=== PATIENT | female | born 1960 | race Caucasian/White ===

== ENCOUNTER 2017-01-17 06:25 | Inpatient (IN) ==
--- NOTE | 2017-01-16 21:54 | Discharge Summary ---
<Gumaro England - Last Filed: 01/17/17 07:49> Date of Encounter: 01/17/17 - Discharge Diagnosis (1) HTN (hypertension) Priority: Secondary Status: Chronic Qualifiers: Hypertension type: unspecified Qualified Code(s): I10 - Essential (primary ) hypertension (2) Hyperlipidemia Priority: Secondary Status: Chronic Qualifiers: Hyperlipidemia type: pure hypercholesterolemia Qualified Code(s): E78.00 - Pure hypercholesterolemia, unspecified; E78.0 - Pure hypercholesterolemia (3) Loosening of total shoulder replacement Priority: Primary Status: Acute Qualifiers: Encounter type: subsequent encounter Qualified Code(s): T84.038D - Mechanical loosening of other internal prosthetic joint, subsequent encounter; Z96.619 - Presence of unspecified artificial shoulder joint; Z96.619 - Presence of unspecified artificial shoulder joint (4) 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 Qualifiers: Laterality: left Qualified Code(s): Z96.612 - Presence of left artificial shoulder joint - Discharge Medications Home Medications: Buspirone HCl [Buspar] 10 mg PO BID 12/01/15 [History] Dicyclomine 20 mg PO TID 12/01/15 [History] Gabapentin [Neurontin] 600 mg PO TID 12/01/15 [History] Losartan Potassium [Cozaar] 100 mg PO HS 12/01/15 [History] Metoprolol XL (24 HR) Succ [Toprol Xl] 50 mg PO DAILY 12/01/15 [History] Potassium Chloride [K-Tab ER] 10 meq PO BID 12/01/15 [History] Simvastatin [Zocor] 40 mg PO HS 12/01/15 [History] TraZODone 50 mg PO HS 12/01/15 [History] Venlafaxine XR (24 HR) [Effexor XR] 75 mg PO TID 12/01/15 [History] cloNIDine HCl [CloNIDine HCl] 0.1 mg PO BID 12/01/15 [History] hydroCHLOROthiazide [Hydrochlorothiazide] 25 mg PO DAILY 12/01/15 [History] OxyCODONE Immed Rel [Roxicodone 5 MG] 5 mg PO Q6HR PRN #28 tablet 01/16/17 [Rx] Cetirizine HCl [Zyrtec] 10 mg PO DAILY 01/17/17 [History] Lansoprazole [Prevacid] 30 mg PO DAILY 01/17/17 [History] Meloxicam [Mobic] 15 mg PO DAILY 01/17/17 [History] Allergies/Adverse Reactions: 3 Allergy/AdvReac Type Severity Reaction Status Date / Time No Known Allergies Allergy Verified 01/17/17 07:09 Primary care physician: He Metcalf, - Patient Status Disposition: Home, Self-Care Condition: Fair - Discharge Instructions Follow Up With: He Metcalf, [Primary Care Provider] - Additional Instructions: Discharge Instructions: Total Shoulder Please call [facility] ([phone]), your Primary Care Physician, or report to the Emergency Room if you have any of the following symptoms: Nausea, vomiting, fever greater that 101.5, swelling, chest pain, shortness of breath, increased pain/redness/drainage/odor for your incision site, numbness/ tingling, or any other concerning symptoms. ACTIVITY: Always keep your arm in the sling. Do not raise your arm away from your body. Do not use your arm to help with getting in or out of bed. No weight bearing permitted. Only perform those exercises given to you by your therapist. MEDICATIONS: Upon discharge resume your home medications. Take all the medications as prescribed. Take a stool softener if taking narcotic pain medications. Stool softeners are only effective if you drink enough fluids. Drink 6-8 glass of water or fluids a day, unless this is not allowed for another health problem. Despite using stool softeners, if you haven't had a bowel movement in 3 days, please switch to a gentle laxative. Gentle laxatives are sold over the counter. You should have a bowel movement within 24 hours, if not call the office. You will be discharged from the hospital with a prescription for pain medication. You are encouraged to decrease the use of narcotic pain medication as tolerated. Should you require a refill, please call the office. [facility] prescribes narcotic pain medication for only 4-6 weeks after surgery. If you require pain medication beyond this time period, you may be referred to your Primary Care Physician or to the Pain Clinic for further evaluation. Plan ahead for refills on pain medication as many narcotics either need to be picked up at the office or mailed. It is best to call 48-72 hours in advance of needing a prescription refill so you don't run out of medication. To help control the post-operative pain, you may take NSAIDs (Aleve,Advil, Motrin, Ibuprofen, Naprosyn) or Tylenol as prescribed on the bottle in addition to the pain medication. WOUND CARE: Leave the dressing on for 7-10 days. You may change the dressing if it becomes saturated greater than 50%. Do not get the dressing wet at anytime. Wash your hands with antibacterial soap, rinse and dry prior to any wound care. If you have simeon the visiting nurse or rehab facility can remove the stapes 10-14 days after surgery and place steri-strips across the wound. Leave the steri-strips in place until they fall off on their own. You may let water from the shower run on top of the steri-strips. If you do not have a visiting nurse or rehab facility, you will need to return to the office at 10-14 days for the simeon to be removed. If you have itching or redness around the dressing call the office. FOLLOW-UP: Please follow up with your surgeon in the orthopedic clinic, as scheduled - Hospital Course Hospital course: Ms. Person is a 56 year old female - Time Spent with Patient Total time spent providing and/or coordinating discharge services: <Hannah Ogden - Last Filed: 01/20/17 08:20> Date of Encounter: 01/18/17 Time of Encounter: 08:19 - Discharge Diagnosis (1) Loosening of total shoulder replacement Priority: Primary Status: Acute Qualifiers: Encounter type: subsequent encounter Qualified Code(s): T84.038D - Mechanical loosening of other internal prosthetic joint, subsequent encounter; Z96.619 - Presence of unspecified artificial shoulder joint; Z96.619 - Presence of unspecified artificial shoulder joint (2) Status post reverse total shoulder replacement Priority: Primary Status: Chronic Qualifiers: Laterality: left Qualified Code(s): Z96.612 - Presence of left artificial shoulder joint (3) HTN (hypertension) Priority: Secondary Status: Chronic Qualifiers: Hypertension type: unspecified Qualified Code(s): I10 - Essential (primary ) hypertension (4) Hyperlipidemia Priority: Secondary Status: Chronic Qualifiers: Hyperlipidemia type: pure hypercholesterolemia Qualified Code(s): E78.00 - Pure hypercholesterolemia, unspecified; E78.0 - Pure hypercholesterolemia Primary care physician: He Metcalf, - Patient Status Functional capacity at discharge: independent ambulation Overall status at discharge: patient is back to baseline - Hospital Course Hospital course: Ms. Person is a 56 year old female - Time Spent with Patient Total time spent providing and/or coordinating discharge services:
[2017-01-17] MEDS ORDERED: *HR* Propofol 200 MG/20 ML VIAL IVP ONE (07:10)
[2017-01-17] MEDS ORDERED: *HR* FentaNYL (PF) 100 MCG/2 ML VIAL ONE (07:10)
[2017-01-17] MEDS ORDERED: *HR* Midazolam HCl 2 MG/2 ML VIAL ONE (07:10)
[2017-01-17] MEDS ORDERED: Ondansetron 4 MG/2 ML VIAL ONE (07:11)
[2017-01-17] MEDS ORDERED: Dexamethasone 4 MG/ML VIAL ONE (07:11)
[2017-01-17] MEDS ORDERED: Lidocaine -MPF 2% 2 ML VIAL ONE (07:11)
[2017-01-17] MEDS ORDERED: *HR* Rocuronium Bromide 50 MG/5 ML VIAL ONE (07:11)
[2017-01-17] MEDS ORDERED: *HR* Succinylcholine 200 MG/10 ML VIAL IVP ONE (07:11)
[2017-01-17] MEDS ORDERED: *HR* Phenylephrine 10 MG/ML VIAL ONE (07:15)
[2017-01-17] MEDS ORDERED: EPHEDrine 50 MG/ML VIAL ONE (07:16)
[2017-01-17] MEDS ORDERED: CeFAZolin Pre 2,000 MG/100 ML 2,000 MG/100 ML BAG IVPB ONE (07:17)
[2017-01-17] MEDS ORDERED: Lidocaine -MPF 1% 2 ML VIAL ID ONE (07:17)
[2017-01-17] MEDS ORDERED: Lidocaine -MPF 4% 5 ML AMPUL ONE (07:19)
[2017-01-17] MEDS ORDERED: Ringers Solution, Lactated 1,000 ML IVC SCH ×2 (07:30→10:53)
--- NOTE | 2017-01-17 07:32 | Anesthesia Evaluation PreOp ---
Date of Encounter: 01/17/17 Time of Encounter: 07:26 - Past History Planned Operation: Left Total Shoulder Revision Cardiac History: HTN, Hyperlipidemia Pulmonary History: Denies Any Significant HX [employer] History: Denies Any Significant HX Other Medical History: GERD Anesthesia History: Past Anesthesia (MORIAH - Left oopherectomy), Problems (PONV) : No Alcohol Use: none Drug use: none Medications and Allergies Buspirone HCl [Buspar] 10 mg PO BID 12/01/15 [History] Dicyclomine 20 mg PO TID 12/01/15 [History] Gabapentin [Neurontin] 600 mg PO TID 12/01/15 [History] Losartan Potassium [Cozaar] 100 mg PO HS 12/01/15 [History] Metoprolol XL (24 HR) Succ [Toprol Xl] 50 mg PO DAILY 12/01/15 [History] Potassium Chloride [K-Tab ER] 10 meq PO BID 12/01/15 [History] Simvastatin [Zocor] 40 mg PO HS 12/01/15 [History] TraZODone 50 mg PO HS 12/01/15 [History] Venlafaxine XR (24 HR) [Effexor XR] 75 mg PO TID 12/01/15 [History] cloNIDine HCl [CloNIDine HCl] 0.1 mg PO BID 12/01/15 [History] hydroCHLOROthiazide [Hydrochlorothiazide] 25 mg PO DAILY 12/01/15 [History] OxyCODONE Immed Rel [Roxicodone 5 MG] 5 mg PO Q6HR PRN #28 tablet 01/16/17 [Rx] Cetirizine HCl [Zyrtec] 10 mg PO DAILY 01/17/17 [History] Lansoprazole [Prevacid] 30 mg PO DAILY 01/17/17 [History] Meloxicam [Mobic] 15 mg PO DAILY 01/17/17 [History] 3 Allergy/AdvReac Type Severity Reaction Status Date / Time No Known Allergies Allergy Verified 01/17/17 07:09 - Meds/Allergy Pre-op Review Medications Reviewed: Yes Allergies Reviewed: Yes Beta Blockers on Current Med List: Yes If Beta Blockers taken, Date/Time (Last Dose taken): 05:00 01/17/2017 Anesthesia Results - Labs Laboratory Tests 10/06/17 10/06/17 10/06/17 09:55 09:55 09:55 WBC 5.4 Hgb 14.2 Hct 42.7 Plt Count 239 INR 1.0 Sodium 133 L Potassium 3.3 L Chloride 95 L Carbon Dioxide 27 BUN 7 Creatinine 0.74 Hemoglobin A1c 01/07/17 09:55 WBC Hgb Hct Plt Count INR Sodium Potassium Chloride Carbon Dioxide BUN Creatinine Hemoglobin A1c 5.7 H - Imaging EKG: image reviewed (SINUS RHYTHM MODERATE VOLTAGE CRITERIA FOR LVH, CONSIDER NORMAL VARIANT) Anesthesia Exam O2 Sat Height 1.52 m Height 1.52 m Weight 58.513 kg Weight 58.513 kg O2 Sat by Pulse Oximetry 96 Vital Signs Temp Pulse Resp BP Pulse Ox 97.8 F 55 18 97/61 96 01/17/17 07:18 01/17/17 07:18 01/17/17 07:18 01/17/17 07:18 01/17/17 07:18 Height: 5' Weight: 129# NPO (# of Hours): > 8 hrs Pain Scale: 0 - HEENT Pupil (Motor): Pupils equal, EOMI Mallampati: III Teeth: Normal Oral Opening: Greater than 3 - [employer] LOC: Oriented [employer] Motor: Normal RUE, Normal LUE, Normal RLE, Normal LLE, Normal Face [employer] Sensory: Normal: RUE, LUE, RLE, LLE, Face - Cardiac Rhythm: Regular Murmur: None JVD: No Carotid Bruit: No - Pulmonary Breath Sounds: bilateral Clear Respiratory Effort: Symmetrical Anesthesia Assess/Plan ASA Score: 2 Modified Abel Scale for Level of Consciousness: Cooperative, oriented, and tranquil Anesthetic Plan: General, Regional (Left Brachial Plexus Block) Autologous Blood: Yes Monitoring Plan: Standard Monitors Recovery Plan: PACU
--- NOTE | 2017-01-17 07:45 | History & Physical Report ---
Date of Encounter: 01/17/17 Time of Encounter: 07:44 24 Hour HP Update - Instructions Instructions: If the History and Physical is less than 30 days old and was completed prior to A.M. admission and or procedure and has NOT been updated on calendar day of procedure please complete this update prior to performing procedure. - Update Patient reports changes in Medical Condition: No Changes in examination, assessment, or condition: No Changes in Medication: No Preop tests/diagnostics Reviewed: Yes Surgery Remains Indicated: Yes Consent for Planned Operative Procedure(s) Verified: Yes - Pre-Operative Checklist Preoperative Checklist Indicated: No Prophylactic Antibiotic Ordered: Yes Is VTE Prophylaxis Indicated?: Yes
[2017-01-17] MEDS ORDERED: ROPIVACAINE HCL/PF 0.5% 30 ML VIAL ONE (08:16)
[2017-01-17] MEDS ORDERED: Ethanol\\Acetic Acid\\Na Ace\\Ben 1,000 ML IRRIG.SOLN IR ONE (08:23)
[2017-01-17] MEDS ORDERED: *HR* Promethazine 25 MG/ML VIAL IVP PRN (08:25)
[2017-01-17] MEDS ORDERED: *HR* HYDROmorphone (PF) 1 MG/ML SYRINGE IVP PRN ×2 (08:25→10:53)
--- NOTE | 2017-01-17 08:41 | Anesthesia Procedures ---
Date of Encounter: 01/17/17 Time of Encounter: 08:39 Procedures: Anesthesia - Nerve Block Procedure Date: 01/17/17 Time: 08:39 Allergies/Adv Reactions: nka Pre-op Diagnosis: left shoulder rc arthropathy Surgical Procedure: left TSA Checklist: Correct Patient Identifier, Correct procedure, History checked Correct side: Left Blood Thinner: No Monitor Applied: EKG, BP, Pulse Oximetry Supplemental Oxygen via Nasal Cannula (L/min): 2 Sedation: Versed (mg): 2 Sedation: Fentanyl (mcg): 100 Indication: Post Op Analgesia Pre-op Neuro Deficits: No Block Type: Interscalene (20mL), Other (CP 10mL) Catheter placed: No Sterile Technique: Yes Ultrasound used: Yes Anatomy identified: Yes Visual spread of Local: Yes Neuro Stimulation: No Blood on Needle Aspiration: No Smooth Injection of Local: Yes Pain with Injection of Local: No Prep: Chlorhexadine Needle: 22 x 50 mm Stimuplex Local: Ropivacaine, Other (decadron 10mg) Volume (cc): 30 Number of Attempts: 1 Complications: None/effective block Vitals: Vital Signs/O2 Sat/Glucose, Most Recent Temp Pulse Resp BP Pulse Ox 97.8 F 62 13 91/50 97 01/17/17 07:18 01/17/17 08:37 01/17/17 08:37 01/17/17 08:37 01/17/17 08:37
[2017-01-17] MEDS ORDERED: *HR* Vasopressin 20 UNIT/ML VIAL ONE (09:04)
--- NOTE | 2017-01-17 09:56 | Orthopedic Operative Note ---
Date of procedure: 01/17/17 Pre-op diagnosis: Aseptic loosening left total shoulder replacement reverse Post-op diagnosis: same Procedure: Procedure: Left Revision Total Shoulder replacement reverse Estimated blood loss: 100 cc Hardware: Arthrex: Metal and polyethylene replacement. Small glenoid, one 6.5 screw, 24.5 screws. 39+4 sphere, 6 stem 3 Allie Procedural Notes: Glenoid baseplate Grossly loose retained broken inferior screw. No evidence of infection. Operative procedure: The patient was brought to the operating room and placed on the operating room table. The patient was placed in the modified beachchair position. All pressure points were padded appropriately. And the head was stabilized in the neutral position. The operative extremity was prepped and draped in the sterile surgical fashion. The patient received IV antibiotics prior to skin incision. A standard deltopectoral approach was made to the operative shoulder. Incision was made through the old incision, through the skin and subcutaneous tissue, hemo stasis was obtained with Bovie cautery. Using careful blunt dissection the cephalic vein was identified and mobilized medially. The deltopectoral interval was developed and the clavipectoral fascia was incised. An extensive debridement was performed, and the shoulder was dislocated. Using an osteotome to clear out the soft tissue, the humeral component was gently removed. Anterior and posterior Bankart retractors were used to expose the glenoid, the glenoid component was removed without incident. First the glenosphere was disengaged, and the screws removed from the baseplate, and finally the baseplate was removed without significant bone loss. The inferior screw is broken the remaining portion was retained within the patient's glenoid. The decision was made not to take this out for fear of damaging the patient's glenoid and affecting glenoid baseplate fixation. The baseplate was grossly loose central and superior screws were removed without incident. The decision was made to downsize the glenoid. The glenoid guide was seated the centering hole was made the glenoid was reamed with the appropriate small reamer. The glenoid was irrigated the central screw hole was packed with [employer] bone stimulating matrix. The glenoid baseplate was seated and secured and locked in place with the inferior compression screw, central and superior locking screws. The baseplate was irrigated and dried the 39+4 glenosphere was seated and secured. Attention was then turned to the humeral side. The humeral stem was removed without bone loss. The humerus was broached to a size 6 as previously impacted. Trial reduction found the shoulder to be relocatable. Trial components were removed, real implants were seated. Trial reduction found the shoulder to be stable with the appropriate 3 Allie. The trial implants were removed the real implants were seated and secured in the shoulder was reduced. The patient had excellent motion and excellent stability no shuck. The deep tissue was irrigated with pulse irrigation the PA closed the shoulder. deltopectoral interval was closed with #2 PDS suture Superficially the subcutaneous tissue was closed with 0 PDS suture, the skin was closed with zipline. The patient placed sterile dressing, postoperative brace extubated and transferred to the recovery room in stable condition. Anesthesia: [id number] Surgeon: Gumaro England Antiquer: Karis Wong Condition: stable Disposition: PACU
[2017-01-17 10:36] LABS: Hematocrit 35.7 % (35.3-44.9); Hemoglobin 12.2 g/dL (11.5-15.4)
--- NOTE | 2017-01-17 10:36 | Anesthesia Evaluation Post Op ---
Date of Encounter: 01/17/17 Time of Encounter: 10:35 - Vital Signs Vital Signs: Vital Signs/O2 Sat/Glucose, Most Recent Temp Pulse Resp BP Pulse Ox 97.8 F 89 16 129/65 99 01/17/17 10:20 01/17/17 10:30 01/17/17 10:30 01/17/17 10:30 01/17/17 10:30 - Lungs Lungs: Clear Ascult./Percussion - Airway Airway: Non-obstructed - Cardiovascular Regular Rate - Mental Status Mental Status: Alert & Oriented, Answers Appropriately - Pain Pain Scale: 0 Pain Scale used: Numeric (1 - 10) - Nausea Vomiting Nausea Vomiting: Not Present - Hydration Hydration: NPO - Discharge PostOp Status: Transfer Patient to floor
[2017-01-17] MEDS ORDERED: MOM Conc 10 ML UD.LIQ PO PRN (10:53)
[2017-01-17] MEDS ORDERED: *HR* OxyCODONE Immed Rel 5 MG TABLET PO PRN ×2 (10:53)
[2017-01-17] MEDS ORDERED: cloNIDine HCl 0.1 MG TABLET PO SCH (10:53)
[2017-01-17] MEDS ORDERED: Temazepam 15 MG CAPSULE PO PRN (10:53)
[2017-01-17] MEDS ORDERED: Ondansetron 4 MG/2 ML VIAL IVP PRN (10:53)
[2017-01-17] MEDS ORDERED: Naloxone 0.4 MG/ML INJ IVP PRN (10:53)
[2017-01-17] MEDS ORDERED: Metoprolol XL (24 HR) Succ 50 MG TAB.ER.24H PO SCH (10:53)
[2017-01-17] MEDS ORDERED: ceFAZolin 2,000 MG in D5% in Water 100 ML IVPB SCH ×2 (10:53→16:00)
[2017-01-17] MEDS ORDERED: Loratadine 10 MG TABLET PO SCH (10:53)
[2017-01-17] MEDS ORDERED: Sennosides 8.6 MG TABLET PO PRN (10:53)
[2017-01-17] MEDS ORDERED: hydroCHLOROthiazide 25 MG TABLET PO SCH (10:53)
[2017-01-17] MEDS: Gabapentin 300 MG CAPSULE PO SCH ×2 (11:37→15:00)
[2017-01-17] MEDS: Venlafaxine XR (24 HR) 75 MG CAP.ER.24H PO SCH ×2 (11:37→15:00)
[2017-01-17] MEDS ORDERED: 0.9 % Sodium Chloride 500 ML IVC ONE (14:45)
[2017-01-17 15:49] VITALS: BP 100/64
[2017-01-17] MEDS ORDERED: FLUARIX QUAD 2017-18 36MOS UP/PF 0.5 ML SYRINGE IM ONE (16:22)
[2017-01-17] MEDS ORDERED: *HR* Enoxaparin 30 MG/0.3 ML SYRINGE SQ SCH ×2 (18:00)
[2017-01-17] MEDS ORDERED: traZODone 50 MG TABLET PO SCH (21:00)
== END 2017-01-17 18:29 | disposition home or self-care (01) | DRG 483 ==
LOC: SAMDAY 06:25 → 3NENU 10:48
PROVIDERS: ADMIT Orthopaedic Surgery; ATTEND Orthopaedic Surgery